=== PATIENT | male | born 1995 | race African-American/Black ===

== ENCOUNTER 2017-07-09 12:10 | Emergency (ER) | payer MEDICAID | END 2017-07-09 14:50 | disposition home or self-care (01) | LOC: D.ER 12:10 | DX: S61.210A Laceration without foreign body of right index finger without damage to nail, initial encounter (principal); W26.9XXA Contact with unspecified sharp object(s), initial encounter; Y93.89 Activity, other specified; Y92.019 Unspecified place in single-family (private) house as the place of occurrence of the external cause ==